=== PATIENT | female | born 1995 | race Caucasian/White ===

== ENCOUNTER 2023-01-25 20:55 | Outpatient (REF) | payer BC, SELFPAY ==
[2023-01-31 10:17] LABS: Age Gdln ACOG Testing Note (.); IGP, rfx Aptima HPV ASCU Note (.)
== END 2023-01-25 20:56 | disposition home or self-care (01) ==
LOC: LAB 20:55
PROVIDERS: Visit Provider Physician Assistant
DX: Z01.419 Encounter for gynecological examination (general) (routine) without abnormal findings (principal)
CPT/HCPCS: G0145

== ENCOUNTER 2024-07-17 20:02 | Outpatient (REF) | payer BC, SELFPAY ==
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
== END 2024-07-17 20:03 | disposition home or self-care (01) ==
LOC: LAB 20:02
PROVIDERS: Visit Provider Physician Assistant
DX: Z01.419 Encounter for gynecological examination (general) (routine) without abnormal findings (principal)
CPT/HCPCS: 88175

== ENCOUNTER 2024-11-19 11:39 | Outpatient (RCR) | payer BC, SELFPAY ==
--- OUTSIDE RECORDS SUMMARY | 2024-11-19 12:24 | XMS_ITS | Encounter Summary ---
Author Organization [facility] Address [address] [place] [address] Care Team Providers Care Head Packager Name Role Phone Basil Rincon MD Primary Care Provider [phone] Encounter Details Date Type Department Care Team (Late Contact Info) Description 11/18/2024 Telephone [facility] [address] [place] [address] [place] [address] Nae Haywood MA Social History Tobacco Use Types Packs/Day Years Used Date Smoking Tobacco: Unknown Alcohol Use Standard Drinks/Week Comments Never 0 (1 standard drink = 0.6 oz pur e alcohol) Caffeine intake: none Comments Unknown Sex and Gender Information Value Date Recorded Sex Assigned at Female 01/23/2023 10:02 AM EST Legal Sex Female 7:28 PM EDT Gender Identity Female 01/23/2023 10:02 AM EST Sexual Orientation Straight 01/23/2023 10 :02 AM EST documented as of this encounter Miscellaneous Notes * Telephone Encounter - Nae Haywood MA - 11/18/2024 1:09 PM EDT Pt called stating positive UPT 11/14/2024. Pt requesting hCG levels. Order faxed over to [facility]. PVU documented in this encounter Plan of Treatment Upcoming Encounters Date Type Department Care Team (Late st Contact Info) Description 12/27/2024 8:30 AM EST Ancillary Procedure [facility] [address] [place] [address] [place] [address] 12/27/2024 9:00 AM EST Initial [facility] [address] [address] 07/21/2025 9:00 AM EDT Office Visit [facility] [address] [address] Dorothy De La Rosa PA [address] [facility] [place] [place] [address] Scheduled Orders Name Type Priority Associated Diagnoses Orde r Schedule hCG, quantitative, Lab Routine Positive urine test ([facility]) 2 Occurrences starting 11/18/2024 until 11/18/2025 documented as of this encounter Visit Diagnoses Diagnosis Positive urine test ([facility]) documented in this encounter Care Teams Head Packager Relationship Specialty Start Date End Date Basil Rincon MD [address] [facility] [place] [address] PCP - General Family Medicine 01/25/23 documented as of this encounter
--- OUTSIDE RECORDS SUMMARY | 2024-11-19 12:24 | XMS_ITS | Encounter Summary ---
Author Organization [facility] Address [address] [place] [address] Care Team Providers Care Barrel Lathe Operator Inside Name Role Phone Basil Rincon MD Primary Care Provider [phone] Encounter Details Date Type Department Care Team (Late st Contact Info) Description 07/31/2024 [place] [phone] Nae Haywood MA Social History Tobacco Use [...] AM EST documented as of this encounter Plan of Treatment Upcoming Encounters Date Type Department Care Team (Late st Contact Info) Description 12/27/2024 8:30 AM EST [place] [phone] 12/27/2024 9:00 AM [place] [address] 07/21/2025 9:00 AM EDT Office Visit [facility] [address] [place] [phone] Dorothy De La Rosa PA [address] [place], [place] [id number] documented as of this encounter Procedures Procedure Name Priority Date/Time Associated Diagnosis Comments PAP SMEAR Routine 07/17/2024 12:00 AM EDT documented in this encounter Results * Pap Smear (07/17/2024 12:00 AM EDT) Swab Cervical swab / Unknown us Dorothy MACKAY LAB CYTOLOGY ORDERABLES Final Re sult EXTERNAL LAB documented in this encounter Visit Diagnoses Not on filedocumented in this encounter Care Teams Barrel Lathe Operator Inside Relationship Specialty Start Date End Date Basil Rincon MD [address] [facility] [place] [address] PCP - General Family Medicine 01/25/23 documented as of this encounter
--- OUTSIDE RECORDS SUMMARY | 2024-11-19 12:24 | XMS_ITS | Clinical Summary ---
Author Organization [facility] Address [address] [place] [address] Care Team Providers Care Dispatcher Bus And Trolley Name Role Phone Basil Rincon MD Primary Care Provider [phone] Allergies Active Allergy Reactions Criticality Noted Date Comments Amoxicillin 01/23/2023 Latex 01/23/2023 Penicillin G 01/23/2023 Medications Norgestimate-Eth Estradiol (Oxl-Lh-Ebctdx) 0.18/0.215/0.25 MG-25 MCG tabletIndications: Encounter for surveillance of contraceptive pills Take 1 tablet by mouth Daily TAKE 1 TABLET BY MOUTH EVERY DAY 30 tablet 5 Active norgestimate-ethin yl estradiol (Sprintec 28) 0.25-35 MG-MCG tabletIndications: control counseling Take 1 tablet by mouth Daily for 28 days Take 1 tablet by mouth daily 28 tablet 11 5 Active Encounters Date Type Department Care Team Description 11/18/2024 Telephone [facility] [address] [place] [address] [place] [address] Nae Haywood MA from Last 3 Months Family History Medical History Relation Name Comments Hypertension Father Mental illness Mother Relation Name Status Comments Father Alive Mother Alive Social History Tobacco Use Types Packs/Day Years Used Date Smoking Tobacco: Unknown Tobacco Cessation:Counseling Given: Not Answered Alcohol Use Standard Drinks/Week Comments Never 0 (1 standard drink = 0.6 oz pur e alcohol) Caffeine intake: none Comments Unknown Sex and Gender Information Value Date Recorded Sex Assigned at Female 01/23/2023 10:02 AM EST Legal Sex Female 7:28 PM EDT Gender Identity Female 01/23/2023 10:02 AM EST Sexual Orientation Straight 01/23/2023 10 :02 AM EST Last Filed Vital Signs Vital Sign Reading Time Taken Comments Blood Pressure 110/82 07/17/2024 12:58 PM EDT Pulse 92 04/30/2023 11:42 AM EDT Temperature 36.6 C (97.8 F) 04/30/2023 11:42 AM EDT Respiratory Rate - - Oxygen Saturation 98% 04/30/2023 11:42 AM EDT Inhaled Oxygen Concentration - - Weight 53.9 kg (118 lb 12 oz) 07/17/2024 12:58 P M EDT Height 157.5 cm (5' 2 ) 03/10/2022 12:00 PM EST Body Mass Index 21.72 03/10/2022 12:00 PM EST Plan of Treatment Upcoming Encounters Date Type Department Care Team (Late st Contact Info) Description 12/27/2024 8:30 AM EST Ancillary Procedure [facility] [address] [place] [address] [place] [phone] 12/27/2024 9:00 AM EST Initial [facility] [address] [place] [address] [place] [address] 07/21/2025 9:00 AM EDT Office Visit [facility] [address] [place] [address] [place] [address] Dorothy De La Rosa PA [address] [facility] [place] [address] Insurance BS Care Teams Dispatcher Bus And Trolley Relationship Specialty Start Date End Date Basil Rincon MD [address] [place] [address] PCP - General Family Medicine 01/25/23
== END 2024-11-20 11:30 | disposition home or self-care (01) ==
LOC: LAB 11:39
PROVIDERS: Visit Provider Obstetrics & Gynecology
DX: Z32.01 Encounter for pregnancy test, result positive (principal)
CPT/HCPCS: 36415; 84702

== ENCOUNTER 2024-11-21 11:31 | Outpatient (OUT) | payer BC, SELFPAY ==
--- OUTSIDE RECORDS SUMMARY | 2024-11-21 11:35 | XMS_ITS | Encounter Summary ---
Author Organization [facility] Address [address] [place] [address] Care Team Providers Care Restaurant Hourly Team Member Name Role Phone Basil Rincon MD Primary Care Provider [phone] Encounter Details Date Type Department Care Team (Late st Contact Info) Description 11/19/2024 Clinisync Result Encounter [facility] External Department Unsolicited Jung Crain DO [address] [place] [address] Social History Tobacco Use Types Packs/Day Years [...] AM EST Ancillary Procedure [facility] [address] [place] [phone] 12/27/2024 9:00 AM EST Initial [facility] B[facility] [address] [place] [phone] 07/21/2025 9:00 AM EDT Office Visit [facility] B[facility]GOS [address] [place] [address] Dorothy De La Rosa PA [address] [facility] [place] [address] documented as of this encounter Procedures Procedure Name Priority Date/Time Associated Diagnosis Comments [facility] PREG QUANT HCG Routine 11/19/2024 11 :55 AM EDT documented in this encounter Results * [facility] PREG QUANT HCG (11/19/2024 11:55 AM EDT) HCG QUANTITATIVE 417 mIU/mL [facility] Comment: 5-50 0.2-1 WEEK 50-500 1-2 WEEKS 100-5,000 2-3 WEEKS 500-10,000 3-4 WEEKS 1,000-50,000 4-5 WEEKS 10,000-100,000 5-6 WEEKS 15,000-200,000 6-8 WEEKS 10,000-100,000 2-3 MONTHS 11/19/2024 11:5 5 AM EDT 11/19/2024 12:01 PM EDT Narrative [facility] - 11/19/2024 12:37 PM EDT us Jung Breann DO [facility] Final [facility] documented in this encounter Visit Diagnoses Not on filedocumented in this encounter Care Teams Restaurant Hourly Team Member Relationship Specialty Start Date End Date Basil Rincon MD [address] [facility] [place] [phone] PCP - General Family Medicine 01/25/23 documented as of this encounter
--- OUTSIDE RECORDS SUMMARY | 2024-11-21 11:35 | XMS_ITS | Clinical Summary ---
Author Organization [facility] Address [address] [place] [address] Care Team Providers Care Patternmaker Sample Name Role Phone Basil Rincon MD Primary Care Provider [phone] Allergies Active Allergy Reactions Criticality Noted Date Comments Amoxicillin 01/23/2023 Latex 01/23/2023 Penicillin G 01/23/2023 Medications Norgestimate-Eth Estradiol (Gqx-Mz-Xklklx) 0.18/0.215/0.25 MG-25 MCG tabletIndications: Encounter for surveillance [...] Encounters Date Type Department Care Team Description 11/19/2024 Clinisync Result Encounter [facility] External Department Unsolicited Jung Crain DO 11/18/2024 Telephone [facility] [address] [place] [address] [place] [address] Nae Haywood MA from Last 3 [...] AM EST Ancillary Procedure [facility] [address] [place] [address] [place] [address] 12/27/2024 9:00 AM EST Initial N[facility] BURG[facility] [address] [place] [address] [place] [address] 07/21/2025 9:00 AM EDT Office Visit M[facility] [place] [address] Dorothy De La Rosa PA [address] [facility] [place] [address] Procedures Procedure Name Priority Date/Time Associated Diagnosis Comments [facility]H PREG QUANT HCG Routine 11/19/2024 11 :55 AM EDT from Last 3 Months Results * [facility] PREG QUANT HCG (11/19/2024 11:55 AM EDT) HCG QUANTITATIVE 417 mIU/mL [facility] Comment: 5-50 0.2-1 WEEK 50-500 1-2 WEEKS 100-5,000 2-3 WEEKS 500-10,000 3-4 WEEKS 1,000-50,000 4-5 WEEKS 10,000-100,000 5-6 WEEKS 15,000-200,000 6-8 WEEKS 10,000-100,000 2-3 MONTHS 11/19/2024 11:5 5 AM EDT 11/19/2024 12:01 PM EDT Narrative [facility] - 11/19/2024 12:37 PM EDT Jung Crain DO [facility] Final Result [facility] TB from Last 3 Months Insurance Care Teams Patternmaker Sample Relationship Specialty Start Date End Date Basil Rincon MD [address] [place] [address] PCP - General Family Medicine 01/25/23
--- OUTSIDE RECORDS SUMMARY | 2024-11-21 11:35 | XMS_ITS | Encounter Summary ---
Author Organization [facility] Address [address] [place] [address] Care Team Providers Care Field Training Manager Name Role Phone Basil Rincon MD Primary Care Provider [phone] Encounter Details Date Type Department Care Team (Late st Contact Info) Description 07/31/2024 [place] [phone] Nae Haywood MA Social History Tobacco Use [...] AM EST [place] [phone] 12/27/2024 9:00 AM [place] [address] 07/21/2025 9:00 AM EDT Office Visit [facility] [place] [facility] [address] [facility] [place] [phone] Dorothy De La Rosa PA [address] [facility] [address] [place], [place] [phone] documented as of this encounter Procedures Procedure Name Priority Date/Time Associated Diagnosis Comments PAP SMEAR Routine 07/17/2024 12:00 AM EDT documented in this encounter Results * Pap Smear (07/17/2024 12:00 AM EDT) Swab Cervical swab / Unknown us Dorothy MACKAY [facility] CYTOLOGY ORDERABLES Final Re sult EXTERNAL LAB documented in this encounter Visit Diagnoses Not on filedocumented in this encounter Care Teams Field Training Manager Relationship Specialty Start Date End Date Basil Rincon MD [address] [facility] [place] [address] PCP - General Family Medicine 01/25/23 documented as of this encounter
--- OUTSIDE RECORDS SUMMARY | 2024-11-21 11:35 | XMS_ITS | Encounter Summary ---
Author Organization [facility] Address [address] [place] [address] Care Team Providers Care Apprentice Stylist Name Role Phone Basil Rincon MD Primary Care Provider [phone] Encounter Details Date Type Department Care Team (Late Contact Info) Description 11/18/2024 Telephone [facility] [address] [place] [address] [place] [address] Nae Haywood MA Social History Tobacco Use [...] requesting hCG levels. Order faxed over to [facility]. [facility] documented in this encounter Plan of Treatment Upcoming Encounters Date Type Department Care Team (Late st Contact Info) Description 12/27/2024 8:30 AM EST Ancillary Procedure [facility] [address] [place] [address] [place] [address] 12/27/2024 9:00 AM EST Initial [facility] [address] [facility] [place] [address] 07/21/2025 9:00 AM EDT Office Visit [facility] [address] [facility] [place] [address] Dorothy De La Rosa PA [address] [facility] [place] [address] Scheduled Orders Name Type Priority Associated Diagnoses Orde r Schedule hCG, quantitative, Lab Routine Positive urine test ([facility]) 2 Occurrences starting 11/18/2024 until 11/18/2025 documented as of this encounter Visit Diagnoses Diagnosis Positive urine test ([facility]) documented in this encounter Care Teams Apprentice Stylist Relationship Specialty Start Date End Date Basil Rincon MD [address] [place] [address] PCP - General Family Medicine 01/25/23 documented as of this encounter
--- OUTSIDE RECORDS SUMMARY | 2024-11-21 18:31 | XMS_ITS | CCD ---
Author Organization [facility] Care Team Providers Care Mobile Health Vehicle Operator Name Role Phone DR CHRISTY POLANCO Admitting Unavailable DR CHRISTY POLANCO Attending Unavailable DR BERNARDINO CHRISTINE Primary Care Unavailable DR CHRISTY POLANCO Consulting Unavailable MD Bernardino Christine Primary Care Provider [phone] RASHEL Perez Emergency Provider Bernardino Christine Primary Care Unavailable Mg Perez Attending Unavailable Mg Perez Admitting Unavailable Bernardino Christine MD Primary Care Provider [phone] DOROTHY WELLS Attending Unavailable Allergies Allergy Classification Reported Allergen(s) Allergy Type Date of Onset Reaction(s) Facility (6 sources) Amoxicillin; Translations: [amoxicillin] Drug Allergy 06-27-2022 [facility] (6 sources) Latex; Translations: [latex] Allergy to substance 06-27-2022 [facility] (2 sources) Penicillins; Translations: [Penicillins] Allergy to substance 06-27-2022 [facility] (4 sources) Penicillin G Drug Allergy 01-23-2023 [facility] Medications Current Medications Medication Drug Class(es) Dates Sig (Normalized) Sig (Original) ethinyl estradiol 0.035 mg / norgestimate 0.25 mg oral tablet (6 sources) Progestin, Estrogen Start: 07-17-2024 End: 08-14-2024 [...] tablet by mouth once daily Norgestimate-Eth Estradiol (Ohk-Yl-Jnfovz) 0.18/0.215/0.25 MG-25 MCG tablet Indications: Encounter for surveillance of contraceptive pills Take 1 tablet by mouth Daily TAKE 1 TABLET BY MOUTH EVERY DAY 30 tablet 05/30/2024 Active Norgestimate-Ethinyl Estradiol (Kaq-Di-Mxvevg) 0.18/0.215/0.25 mg-25 mcg tablet (1 source) Start: 06-27-2022 take 1 tablet by mouth once daily Norgestimate-Ethinyl Estradiol (Slt-Oq-Psxxla) 0.18/0.215/0.25 mg-25 mcg tablet Active 1 TAB [...] Test Name Value Interpretation Reference Range Facility IGP,APTIMA HPV,AGE GDLNon AGE GDLN ACOG TESTING Note . [facility] Comment on above: TESTS RESULT FLAG UN ITS REF RANGE LAB Clinician Provided Cytology Information Source.............Cervix;Endocervix No. of containers..01 ThinPrep Vial Age Algo ACOG Carina... 21-29 01 FLAG LEGEND: L-Low Normal,H-High Normal,LL-Alert Low,HH-Alert High <-Panic Low,>-Panic High,A-Abnormal,AA-Critical Abnormal Performed at: 01 =G [facility] [address] Ashley Leslie MD, IGP, RFX APTIMA HPV ASCU Note . [facility] Comment on above: TESTS RESULT FLAG UN ITS REF RANGE LAB DIAGNOSIS: 02 NEGATIVE FOR INTRAEPITHELIAL LESION OR MALIGNANCY. Specimen adequacy: 02 Satisfactory for evaluation. Endocervical and/or squamous metaplastic cells (endocervical component) are present. Performed by: Jessica Nicolas, Mail Machine Operator ([facility]) . 02 Note: Note 02 The Pap smear is a screening test designed to aid in the detection of premalignant and malignant conditions of the uterine cervix. It is not a diagnostic procedure and should not be used as the sole means of detecting cervical cancer. Both false-positive and false-negative reports do occur. Test Methodology: Note 02 This liquid based ThinPrep(R) pap test was screened with the use of an image guided system. . 02 The HPV DNA reflex criteria were not met with this specimen result therefore, no HPV testing was performed. FLAG LEGEND: L-Low Normal,H-High Normal,LL-Alert Low,HH-Alert High <-Panic Low,>-Panic High,A-Abnormal,AA-Critical Abnormal Performed at: [address] [address] Ashley Leslie MD, Performed at: = - [facility] [id number] Extrusion Die Corrector: Ashley Leslie MD, Phone: [phone] Performed at: [facility] [address] [id number] Extrusion Die Corrector: Ashley Leslie MD, Phone: [phone] BRUSH-SPATULA CERVIX ENDOCERVIX [facility] HCG ( test) Ql (U)o n 07-17-2024 Interpretation and review of laboratory results Normal [facility] Preg Test, Ur Negative Negative [facility] XR humerus RT*on 06-27-2022 XR humerus RT* [facility] [place] [address] XRay Report Signed Patient: Maria Elena Valverde MR#: [id number] [birth year] : 1995 Acct:[id number] Age/Sex: 26 / F ADM Date: 06/27/22 Loc: ER Room: Type: [facility] ER Attending Dr: Copies to: Mg Perez [...] Lynette Sherman M.D.06/27/2022 8:33 PM Dictation Location: [place] [address] Transcribed By: [facility] 06/27/222032 Dictated By: Lynette Sherman MD 06/27/222031 Signed By: 06/27/222032 [facility] PAP ACOG PANEL 2: 21 to 29on 02-01-2022 . . Normal [facility] Comment on above: Performed By: #### [id number] #### [facility] [address] [place] [address] Dr. Rajwinder Seaman Age Gdln ACOG Testing - [facility] Comment on above: Performed By: #### 4 [id number] #### [facility] [address] [place] [address] Dr. Rajwinder Seaman DIAGNOSIS: Comment [facility] Comment on above: Result Comment: NEGA TIVE FOR INTRAEPITHELIAL LESION OR MALIGNANCY. Performed By: #### 4 [id number] #### [facility] [address] [place] [address] Dr. Rajwinder Seaman Methodology: Comment [facility] Comment on above: Result Comment: This liquid based ThinPrep(R) pap test was screened with the use of an image guided system. Performed By: #### 4 [id number] #### [facility] [address] [place] [address] Dr. Rajwinder Seaman Note: Comment [facility] Comment on above: Result Comment: The Pap smear is a screening test designed to aid in the detection of premalignant and malignant conditions of the uterine cervix. It is not a diagnostic procedure and should not be used as the sole means of detecting cervical cancer. Both false-positive and false-negative reports do occur. . Performed By: #### 4 [id number] #### [facility] [address] [place] [address] Dr. Rajwinedr Seaman Performed by: Comment [facility] Comment on above: Result Comment: Nehal Larsen Physical Science Aide Performed By: #### 4 [id number] #### [facility] [address] [place], [place] [address] Dr. Rajwinder Seaman Reflex Criteria: Comment Normal [facility] Comment on above: Result Comment: The HPV DNA reflex criteria were not met with this specimen result therefore, no HPV testing was performed. . Performed By: #### 4 [id number] #### [facility] [address] [place], [place] [address] Dr. Rajwinder Seaman Specimen adequacy: Comment Normal [facility] Comment on above: Result Comment: Sati sfactory for evaluation. Endocervical and/or squamous metaplastic cells (endocervical component) are present. Performed By: #### 4 [id number] #### [facility] [address] [place] [address] [address] Rajwinder Seaman Vital Signs Date Time Vital Sign Value Performing Clinician Facility 07-17-2024 12:58-0400 Body mass index (BMI) [Ratio] 21.72 kg/m2 Dorothy MACKAY Work Phone: [facility] 07-17-2024 12:58-0400 Body weight 53.87 kg Dorothy MACKAY Work Phone: [facility] 07-17-2024 12:58-0400 Diastolic blood pressure 82 mm[Hg] Dorothy MACKAY Work Phone: [facility] 07-17-2024 12:58-0400 Systolic blood pressure 110 mm[Hg] Dorothy MACKAY Work Phone: [facility] 06-27-2022 19:18-0400 Body height 157.48 cm MD Bernardino Christine Work Phone: [facility] 06-27-2022 19:18-0400 Body temperature 98.8 [degF] MD Bernardino Christine Work Phone: [facility] 06-27-2022 19:18-0400 Body weight 49.4 kg MD Bernardino Christine Work Phone: [facility] 06-27-2022 19:18-0400 Diastolic blood pressure 70 mm[Hg] MD Bernardino Christine Work Phone: [facility] 06-27-2022 19:18-0400 Heart rate 94 /min MD Bernardino Christine Work Phone: [facility] 06-27-2022 19:18-0400 Respiratory rate 17 /min MD Bernardino Christine Work Phone: [facility] 06-27-2022 19:18-0400 SaO2% (BldA) [Mass fraction] 97 % MD Bernardino Christine Work Phone: [facility] 06-27-2022 19:18-0400 Systolic blood pressure 130 mm[Hg] MD Bernardino Christine Work Phone: [facility] Encounters Encounter Date Encounter Type Care Provider Facility Start: 07-17-2024 End: 07-17-2024 Bamboo flowsheet Dorothy MACKAY Work Phone: [facility] Start: 07-17-2024 End: 07-21-2024 Bamboo flowsheet Dorothy MACKAY Work Phone: [facility] Start: 07-17-2024 End: 07-21-2024 Clinisync Result Encounter Dorothy MACKAY Work Phone: [facility] Unsolicited Start: 07-17-2024 End: 07-17-2024 Patient encounter procedure Dorothy MACKAY Work Phone: [facility] Start: 07-17-2024 End: 07-17-2024 Periodic preventive med est patient 18-39 yrs Dorothy MACKAY Work Phone: [facility] Comment on above: Well woman exam with routine gynecological exam; control counseling Start: 07-17-2024 End: 07-17-2024 ambulatory DOROTHY WELLS Not Available Start: 06-27-2022 End: 06-27-2022 Emergency department patient visit Bernardino Christine Facility:[facility] Start: 06-27-2022 End: 06-27-2022 Emergency department patient visit MD Bernardino Christine Work Phone: [facility] Work Phone: Start: 01-24-2022 End: 01-24-[address] CHRISTY POLANCO Facility:H1 Procedures Date Procedure Procedure Detail Performing Clinician Start: 07-17-2024 IGP,APTIMA HPV,AGE GDLN Dorothy MACKAY Work Phone: Start: 07-17-2024 Urine test visual color cmprsn meths Dorothy MACKAY Work Phone: Start: 06-27-2022 Plain X-ray of right humerus MD Bernardino Christine Work Phone: Plan of Treatment Date Care Activity Detail Author Start: 07-21-2025 End: 07-21-2025 Patient encounter procedure 07/21/2025 9:00 AM EDT Office Visit [facility] [address] [facility] [address] Dorothy Wells PA [address] [facility] [address] [place], [place] [id number] [facility] Start: 07-17-2024 End: 07-17-2024 Patient encounter procedure 07/17/2024 1:00 PM EDT Office Visit [facility] [address] [facility] [address] Dorothy Wells PA [address] [facility] [address] [place], [place] [id number] Arrived [facility] Comment on above: Arrived Cytology Cervical or vaginal smear or scraping study Pap Smear Pathology and Cytology Routine Well woman exam with routine gynecological exam Ordered: 07/17/2024 [facility] Work Phone: Comment on above: Ordered: 07/17/2024 Patient Education Minor Contusion ED [facility] Work Phone: Patient referral [facility] Work Phone: Payers Date Payer Category Payer Blue [employer] Blue Shield [id number] 2024 Unknown [id number] 2022 Self-pay [id number] 1995 Unknown [id number] 1995 Unknown [id number] 1957 Unknown [id number] Unknown Regular Auto/Medical [id number] Unknown [id number] Social History Date Type Detail Facility Tobacco smoking stat [facility] Unknown if ever smoked [facility] Work Phone: Start: 1995 Sex Assigned At Female [facility] Start: 04-30-2023 Tobacco smoking status OHIS Tobacco smoking consumption unknown [facility] Start: 04-30-2023 End: 07-17-2024 Alcoholic beverage intake Lifetime non-drinker (finding) [facility] Start: 01-25-2023 History of Social function [facility] Start: 01-25-2023 Tobacco use panel [facility] Start: 01-24-2023 Alcohol Comment Caffeine intake: none [facility] Start: 01-23-2023 Gender identity Identifies as female gender (finding) [facility] Start: 01-23-2023 Sexual orientation Heterosexual (finding) [facility] History of Present illness Narrative 07-17-2024 THOMPSON Garcia - 07/17/2024 1:00 PM EDT Note Date & Type Note Facility 07-17-2024 History of Presen t illness Narrative Reason for Appointment: Patient ID: Maria Elena Valverde is a 28 y.o. female who presents for Well Women Visit Patient presents today for Annual Exam. MEDICATIONS Current Outpatient Medications Medication Instructions Norgestimate-Eth Estradiol (Tdy-Mb-Uaiddd) 0.18/0.215/0.25 MG-25 MCG tablet 1 tablet, Oral, [...] nursing note reviewed. Exam conducted with a behavioral health specialist present. Vitals: Estimated body mass index is [...] Facility Evaluation note No assessment information availa [facility] Work Phone: Evaluation note Note Date & [...] and content) DATE CREATED AUTHOR 02/02/2022 [facility] DATE CREATED AUTHOR AUTHOR'S ORGANIZ ATION 07/01/2022 [facility] DATE CREATED AUTHOR AUTHOR'S ORGANIZ ATION 07/20/2024 [facility] dical Specialists [facility] Care Teams (unrecognized sec tion and content) Team Status: Active Member Role Status Dates Bernardino Christine MD Primary Care Provider Active Team Status: Inactive Member Role Status Dates Bernardino Christine MD Primary Care Provider Active BRITT GanC Emergency Provider Active Mobile Health Vehicle Operator Relationship Specialty Start Date End Date Bernardino Christine MD [address] [place] [address] PCP - General Family Medicine 01/25/23 Mobile Health Vehicle Operator Relationship Specialty Start Date End Date Bernardino Christine MD [address] [place] [address] [phone] PCP - General Family Medicine 01/25/23 Goals [...] BE BASED ON THE PRIMARY CLINICAL RECORDS. [employer] [facility]. provides no warranty or guarantee of the accuracy or completeness of information in this document.
== END 2024-11-21 11:32 | disposition home or self-care (01) ==
PROVIDERS: Visit Provider Obstetrics & Gynecology
DX: Z32.01 Encounter for pregnancy test, result positive (principal)
CPT/HCPCS: 36415; 84702

== ENCOUNTER 2024-12-27 09:58 | Outpatient (OUT) | payer BC, SELFPAY ==
--- OUTSIDE RECORDS SUMMARY | 2024-12-27 08:30 | XMS_ITS | Encounter Summary ---
Author Organization [facility] Address [address] [place] [address] Care Team Providers Care Senior Director Of [employer] Name Role Phone Basil Rincon MD Primary Care Provider [phone] Encounter Details DateTypeDepartmentCare Team (Latest Contact Info)Dugscnxkjvz19/07/2025 8:30 AM ESTAncillary Procedure [facility] Bruce BURGOS [address] [place] [address] Missed menses; Positive urine test ([facility]) Social History Tobacco UseTypesPacks/DayYears UsedDateSmoking Tobacco: UnknownAlcohol Use Standard Drinks/WeekCommentsNever0 (1 standard drink = 0.6 oz pure alcohol) Caffeine intake: noneEstimated Date of VsqgwmurHphvwaxkZcu22/09/2026 Based on last menstrual period of 2024Sex and Gender InformationValueDate RecordedSex Assigned at XxxowTskbvu10/04/2023 10:02 AM ESTLegal SexFemale 05/04/2022 7:28 PM EDTGender QlmjwsydBlfkqb49/04/2023 10:02 AM ESTSexual MskhuidusajLjqkqxci06/04/2023 10:02 AM ESTdocumented as of this encounter Plan of Treatment DateTypeDepartmentCare Team (Latest Contact Info)Gzapwfllqrd46/04/2025 9:20 AM ESTRoutine [facility] Bruce BURGOS [address] [place] [address] Jung Crain DO [address] [facility] [place] [address] 07/21/2025 9:00 AM EDTOffice Visit [facility] Bruce WRIGHTGYN [address] [facility] [place] [phone] Dorothy De La Rosa PA [address] [facility] [place] [address] NameTypePriorityAssociated DiagnosesDate/TimeUS OB transvaginalImagingRoutine Missed menses Positive urine test ([facility]) 12/27/2024 10:01 AM ESTdocumented as of this encounter Visit Diagnoses Diagnosis Missed menses Positive urine test ([facility]) documented in this encounter Care Teams Team MemberRelationshipSpecialtyStart DateEnd Date Basil Rincon MD [address] [facility] [place] [address] PCP - GeneralFamily Jvzzgpyw78/6/23documented as of this encounter
--- OUTSIDE RECORDS SUMMARY | 2024-12-27 09:00 | XMS_ITS | Encounter Summary ---
Author Organization [facility] Address [address] [place] [address] Care Team Providers Care Wood Boat Builder Supervisor Name Role Phone Basil Rincon MD Primary Care Provider [phone] Reason for Visit * ReasonCommentsAmenorrhea Encounter Details DateTypeDepartmentCare Team (Latest Contact Info)Yuefrzxspqr68/07/2025 9:00 AM ESTInitial [facility] Bruce OBGYRandy [address] [place] [address] [place] [address] GA: 9w3d Social History Tobacco UseTypesPacks/DayYears UsedDateSmoking Tobacco: UnknownAlcohol Use Standard Drinks/WeekCommentsNever0 (1 standard drink = 0.6 oz pure alcohol) Caffeine intake: noneEstimated Date of NibwggmlPyfzagjyPqj62/09/2026 Based on last menstrual period of 2024Sex and Gender InformationValueDate RecordedSex Assigned at FxaznVwxcxy56/04/2023 10:02 AM ESTLegal SexFemale 05/04/2022 7:28 PM EDTGender LsnbkvqmNmimcg38/04/2023 10:02 AM ESTSexual BpelbozhnnqPrgokhwb59/04/2023 10:02 AM ESTdocumented as of this encounter Last Filed Vital Signs Vital SignReadingTime TakenCommentsBlood Lcwetbpc873/7812/27/2024 8:57 AM EST Pulse--Temperature--Respiratory Rate--Oxygen Saturation--Inhaled Oxygen Concentration--Uheghd16 kg (119 lb)12/27/2024 8:57 AM ESTHeight--Body Mass Index 21.7701/ 12:00 PM ESTdocumented in this encounter Progress Notes * Monisha YeeAMINATA - 12/27/2024 9:00 AM EST Reason for Appointment: Patient ID: Maria Elena Valverde is a 29 y.o. female who presents for Amenorrhea Patient presents today for a Nurse OB Intake appointment. Patient is 9w3d with a Estimated Date of Delivery: 07/29/25 OB History Para Term AB Living 1 SAB IAB Ectopic Multiple Live Births # Outcome Date GA Lbr Enoc/2nd Weight Sex Type Anes PTL Lv 1 Current Current Medications: currently has no medications in their medication list. Medical History: Active Ambulatory Problems Diagnosis Date Noted No Active Ambulatory Problems Resolved Ambulatory Problems Diagnosis Date Noted No Resolved Ambulatory Problems Past Medical History: Diagnosis Date Eczema Learning disability Family History Problem Relation Name Age of Onset Mental illness Mother Hypertension Father Social History Tobacco Use Smoking status: Unknown Smokeless tobacco: Not on file Substance Use Topics Alcohol use: Never Comment: Caffeine intake: none Drug use: Not on file History reviewed. No pertinent surgical history. Allergies Allergen Reactions Amoxicillin Latex Other Reaction(s): Rash Penicillin G Penicillins Other Reaction(s): Hives Vitals: Estimated body mass index is 21.77 kg/m?? as calculated from the following: Height as of 03/10/22: 5' 2 . Weight as of this encounter: 119 lb. BP: 118/78 Patient's last menstrual period was 2024. Assessment/Plan Diagnoses and all orders for this visit: Missed menses - US OB transvaginal; Future - Type and screen; Future - ABO/Rh; Future - CBC and differential - Hemoglobin A1c - RPR - Rubella antibody, IgG - Hepatitis B surface antigen - Hepatitis C antibody - HIV-1 and HIV-2 antibodies - Urine culture - POCT , urine manually resulted - POCT urinalysis dipstick manually resulted Positive urine test ([facility]) - US OB transvaginal; Future , unspecified gestational age ([facility]) - Type and screen; Future - ABO/Rh; Future - CBC and differential - Hemoglobin A1c - RPR - Rubella antibody, IgG - Hepatitis B surface antigen - Hepatitis C antibody - HIV-1 and HIV-2 antibodies - Rapid drug screen, urine; Future Encounter for supervision of normal first in first trimester ([facility]) - Rapid drug screen, urine; Future 9 weeks gestation of ([facility]) Nurse Note: Pt is unsure of the [place] billion to one. Advised pt if she decides to have [place] to make sure labs are done along with it. PVU. 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 Her partner gets shingles yearly. Pt was advised not to be around her partner when he has anoutbreak due to being contagious. Both parties VU. Follow Up: Patient is to have labs drawn at directed and return to office for initial OB appointment with provider. Patient may call office as needed with any concerns or questions. Nurse Visit Completed by: Monisha Yee MA documented in this encounter Plan of Treatment DateTypeDepartmentCare Team (Latest Contact Info)Ofcnozjonul95/04/2025 9:20 AM ESTRoutine [facility] Bruce BURGOS [address] [facility] [place] [phone] Jung Crain DO [address] [facility] [place] [address] 07/21/2025 9:00 AM EDTOffice Visit NOMToma BURGOS [address] [facility] [place] [address] Dorothy De La Rosa PA [address] [facility] [place] [address] NameTypePriorityAssociated DiagnosesDate/TimeUS OB transvaginalImagingRoutine Missed menses Positive urine test ([facility]) 12/27/2024 10:01 AM ESTNameTypePriorityAssociated DiagnosesOrder ScheduleUS OB transvaginalImagingRoutine Missed menses Positive urine test ([facility]) Expected: 12/17/2024, Expires: 03/19/2025Type and screenLabRoutine Missed menses , unspecified gestational age ([facility]) Expected: 12/27/2024 (Approximate), Expires: 12/27/2025BO/RhLabRoutine Missed menses , unspecified gestational age ([facility]) Expected: 12/27/2024 (Approximate), Expires: 12/27/2025BC and differentialLab Routine Missed menses , unspecified gestational age ([facility]) Ordered: 12/27/2024Hemoglobin F7sBhuKhjxcbx Missed menses , unspecified gestational age ([facility]) Ordered: 12/27/2024RPRLabRoutine Missed menses , unspecified gestational age ([facility]) Ordered: 12/27/2024Rubella antibody, IgGLabRoutine Missed menses , unspecified gestational age ([facility]) Ordered: 12/27/2024Hepatitis B surface antigenLabRoutine Missed menses , unspecified gestational age ([facility]) Ordered: 12/27/2024Hepatitis C antibodyLabRoutine Missed menses , unspecified gestational age ([facility]) Ordered: 12/27/2024HIV-1 and HIV-2 antibodiesLabRoutine Missed menses , unspecified gestational age ([facility]) Ordered: 12/27/2024Urine cultureMicrobiologyRoutine Missed menses Ordered: 12/27/2024Rapid drug screen, urineLabRoutine , unspecified gestational age ([facility]) Encounter for supervision of normal first in first trimester ([facility]) Expected: 12/27/2024 (Approximate), Expires: 12/27/2025documented as of this encounter Procedures Procedure NamePriorityDate/TimeAssociated DiagnosisCommentsPOCT , URINE Vrgjnhu9312/27/2024 8:50 AM EST Missed menses POCT URINALYSIS NOWOWSSVTxfnvpu41/07/2025 8:50 AM EST Missed menses documented in this encounter Results * (ABNORMAL) POCT urinalysis dipstick manually resulted (12/27/2024 8:50 AM EST) ComponentValueRef RangeTest MethodAnalysis TimePerformed AtPathologist SignatureColor, UAYellowClarity, UAClearGlucose, UANegativeNegative - 2000(110) ++++ mg/dLBilirubin, UANegativeNegative - 4(70) +++ mg/dLKetones, UA NegativeNegative - 160(16) ++++ mg/dLSpec Grav, UA1.0301 - 1.03Blood, UA PositiveNegative - 50 Zak/mcLpH, UA5.55 - 9Protein, UANegativeNegative - 2000(20) ++++ mg/dLUrobilinogen, UA1.00.2 - 12 mg/dLLeukocytes, UANegative Negative - 500+++ Cherelle/mcLNitrite, UANegativeNegative - PositiveSpecimen (Source)Anatomical Location / LateralityCollection Method / VolumeCollection TimeReceived WwirYyucg94/07/2025 8:50 AM EST Narrative Authorizing ProviderResult TypeResult StatusCorey Breann DOPOINT OF CARE TEST ENTER/EDIT ORDERABLESFinal Result * (ABNORMAL) POCT , urine manually resulted (12/27/2024 8:50 AM EST) ComponentValueRef RangeTest MethodAnalysis TimePerformed AtPathologist SignaturePreg Test, UrPositiveNegativeSpecimen (Source)Anatomical Location / LateralityCollection Method / VolumeCollection TimeReceived TimeUrine 12/27/2024 8:50 AM EST Narrative Authorizing ProviderResult TypeResult StatusCorey Breann DOPOINT OF CARE TEST ENTER/EDIT ORDERABLESFinal Result documented in this encounter Visit Diagnoses Diagnosis Missed menses Positive urine test ([facility]) , unspecified gestational age ([facility]) Encounter for supervision of normal first in first trimester ([facility]) 9 weeks gestation of ([facility]) documented in this encounter Care Teams Team MemberRelationshipSpecialtyStart DateEnd Date Basil Rincon MD [address] [place] [address] PCP - GeneralFamily Oogvpoks97/6/23documented as of this encounter
--- OUTSIDE RECORDS SUMMARY | 2024-12-27 10:02 | XMS_ITS | Encounter Summary ---
Author Organization [facility] Address [address] [place] [address] Care Team Providers Care Professor Of Business Name Role Phone Basil Rincon MD Primary Care Provider [phone] Encounter Details DateTypeDepartmentCare Team (Latest Contact Info)Jbmjbjbwgsd80/07/2025bstract MARS BURGOS [address] [place] [phone] Jung Crain DO [facility] Dhruv [place], [facility] Social History Tobacco UseTypesPacks/DayYears UsedDateSmoking Tobacco: UnknownAlcohol Use Standard Drinks/WeekCommentsNever0 (1 standard drink = 0.6 oz pure alcohol) Caffeine intake: noneEstimated Date of AfabgiukQupuqfcsVba07/09/2026 Based on last menstrual period of 2024Sex and Gender InformationValueDate RecordedSex Assigned at PstesPglfys05/04/2023 10:02 AM ESTLegal SexFemale 05/04/2022 7:28 PM EDTGender YaipaacjVwnpea61/04/2023 10:02 AM ESTSexual UghwqjhvhqlYtojgxhx04/04/2023 10:02 AM ESTdocumented as of this encounter Plan of Treatment DateTypeDepartmentCare Team (Latest Contact Info)Gkbymiraurm58/04/2025 9:20 AM ESTRoutine MARS BURGOS [address] [place] [phone] Jung Crain DO [address] [facility] [address] [place], [place] [address] 07/21/2025 9:00 AM EDTOffice Visit [facility] Bruce BURGOS [address] [facility] [place] [address] Dorothy De La Rosa PA [address] [facility] [address] [place], [place] [phone] documented as of this encounter Visit Diagnoses Not on filedocumented in this encounter Care Teams Team MemberRelationshipSpecialtyStart DateEnd Basil Rincon MD [address] [facility] [place] [address] PCP - GeneralFamily Pbrigebi76/6/23documented as of this encounter
--- OUTSIDE RECORDS SUMMARY | 2024-12-27 10:02 | XMS_ITS | Clinical Summary ---
Author Organization [facility] Address [address] [place] [address] Care Team Providers Care Emulsion Operator Name Role Phone Basil Rincon MD Primary Care Provider [phone] Allergies Active AllergyReactionsCriticalityNoted UhnxJsfpufpqSzpbvlpunht33/04/2023Latex 06/27/2022 Other Reaction(s): Rash Penicillin 0254Rirsckphggz59/08/2023 Other Reaction(s): Hives Medications MedicationSigDispense QuantityRefillsLast FilledStart DateEnd DateStatus Norgestimate-Eth Estradiol (Zxq-Ac-Cvgpzk) 0.18/0.215/0.25 MG-25 MCG tablet Indications:Encounter for surveillance of contraceptive pillsTake 1 tablet by mouth Daily TAKE 1 TABLET BY MOUTH EVERY DAY 30 tablet Discontinued(Therapy completed) norgestimate-ethinyl estradiol (Sprintec 28) 0.25-35 MG-MCG tablet Indications: control counselingTake 1 tablet by mouth Daily for 28 days Take 1 tablet by mouth daily 28 tablet 110Discontinued(Therapy completed) Encounters DateTypeDepartmentCare YzoeEldwgegwlzh62/07/2025 9:00 AM ESTInitial MARS [place] OBLUÍS [address] [place] [address] [place] [address] [place]: 9w3d12/27/2024 8:30 AM ESTAncillary Procedure [facility] Bruce OBGYN [address] [facility] [place] [address] Missed menses; Positive urine test ([facility])12/27/2024bstract [facility] Bruce OBGYN [address] [facility] [place] [address] BreannJung soriano, DO 12/26/20248181Lkctmi45/31/3882Ezkqez39/02/2025Clinisync Result Encounter NOMS External Department Unsolicited Jung Crain, DO 11/19/2024linisync Result Encounter NOMS External Department Unsolicited Jung Crain, DO 11/18/2024Telephone [facility] Bruce OBLUÍS [address] [facility] [place] [phone] Nae Haywood MA from Last 3 Months Family History Medical HistoryRelationNameCommentsHypertensionFatherMental illnessMother RelationNameStatusCommentsFatherAliveMotherAlive Social History Tobacco UseTypesPacks/DayYears UsedDateSmoking Tobacco: Unknown Tobacco Cessation:Counseling Given: Not Answered Alcohol UseStandard Drinks/WeekCommentsNever0 (1 standard drink = 0.6 oz pure alcohol)Caffeine intake: noneEstimated Date of DeliveryCommentsYes 07/29/2025ased on last menstrual period of 2024Sex and Gender Information ValueDate RecordedSex Assigned at QkvzbChxbau33/04/2023 10:02 AM ESTLegal Sex Qjpfpl3805/04/2022 7:28 PM EDTGender BgavcmtbKztxkc42/04/2023 10:02 AM ESTSexual WtfxgxtkykcVrwojigw51/04/2023 10:02 AM EST Last Filed Vital Signs Vital SignReadingTime TakenCommentsBlood Cxojfrlb065/7811 8:57 AM EST Deldq285704/30/2023 11:42 AM XIQXkpiklvaqqz85.6 ??C (97.8 ??F)04/30/2023 11:42 AM EDTRespiratory Rate--Oxygen Fwqhtartxk32%04/30/2023 11:42 AM EDTInhaled Oxygen Concentration--Vcwiwz22 kg (119 lb)12/27/2024 8:57 AM KMLJbdfoe721.5 cm (5' 2 ) 03/10/2022 12:00 PM ESTBody Mass Index21.77003/10/2022 12:00 PM EST Plan of Treatment DateTypeDepartmentCare Team (Latest Contact Info)Myoonesfgqz13/04/2025 9:20 AM ESTRoutine NOMToma BURGOS [address] [facility] [place] [phone] Jung Crain DO [address] [facility] [address] [place], [place] [phone] 07/21/2025 9:00 AM EDTOffice Visit MARS BURGOS [address] [facility] [place] [address] Dorothy De La Rosa PA [address] [facility] [place] [address] Procedures Procedure NamePriorityDate/TimeAssociated DiagnosisCommentsPOCT URINALYSIS HEENGWJVOchpfvt57/07/2025 8:50 AM EST Missed menses POCT , UAXDLJbbyxjj96/07/2025 8:50 AM EST Missed menses [facility] PREG QUANT LGUTxddeey58/02/2025 11:36 AM EDT [facility] PREG QUANT QKAKdrmjht24/30/2025 11:55 AM EDT from Last 3 Months Results * (ABNORMAL) POCT , urine manually resulted (12/27/2024 8:50 AM EST) ComponentValueRef RangeTest MethodAnalysis TimePerformed AtPathologist SignaturePreg Test, UrPositiveNegativeSpecimen (Source)Anatomical Location / LateralityCollection Method / VolumeCollection TimeReceived TimeUrine 12/27/2024 8:50 AM EST Narrative Authorizing ProviderResult TypeResult StatusCorey Breann DOPOINT OF CARE TEST ENTER/EDIT ORDERABLESFinal Result * (ABNORMAL) POCT urinalysis dipstick manually resulted [...] Location / LateralityCollection Method / VolumeCollection TimeReceived ZdgzIxybk18/07/2025 8:50 AM EST Narrative Authorizing ProviderResult TypeResult StatusCorey Breann DOPOINT OF CARE TEST ENTER/EDIT ORDERABLESFinal Result * [facility] PREG QUANT HCG (11/21/2024 11:36 AM EDT) Only the most recent of2 resultswithin the time period is included. ComponentValueRef RangeTest MethodAnalysis TimePerformed AtPathologist Signature HCG QUANTITATIVE1,199mIU/mLTBHComment: 5-50 ? 0.2-1 WEEK 50-500 ? 1-2 WEEKS 100-5,000 ?2-3 WEEKS 500-10,000 ? 3-4 WEEKS 1,000-50,000 ?? 4-5 WEEKS 10,000-100,000 5-6 WEEKS 15,000-200,000 6-8 WEEKS 10,000-100,000 2-3 MONTHS Specimen (Source)Anatomical Location / LateralityCollection Method / Volume Collection TimeReceived Time11/21/2024 11:36 AM EDT1 11:39 AM EDT Narrative [facility] - 11/21/2024 1:22 PM EDT Authorizing ProviderResult TypeResult StatusCorey Breann DOCLINISYNCFinal Result Performing OrganizationAddressCity/State/ZIP CodePhone Number CLINISYNC [facility] from Last 3 Months Insurance Care Teams Team MemberRelationshipSpecialtyStart DateEnd Date Basil Rincon MD [address] [place] [address] PCP - GeneralFamily Cavlbqwy80/6/23
--- OUTSIDE RECORDS SUMMARY | 2024-12-27 10:02 | XMS_ITS | Encounter Summary ---
Author Organization [facility] Address [address] [place] [address] Care Team Providers Care Supervisor In Circuit Testing Name Role Phone Basil Rincon MD Primary Care Provider [phone] Encounter Details DateTypeDepartmentCare Team (Latest Contact Info)Ztedixaqstq54/06/2025Travel Social History Tobacco UseTypesPacks/DayYears UsedDateSmoking Tobacco: UnknownAlcohol Use Standard Drinks/WeekCommentsNever0 (1 standard drink = 0.6 oz pure alcohol) Caffeine intake: noneEstimated Date of VbtazsuqVizzrazrElc67/09/2026 Based on last menstrual period of 2024Sex and Gender InformationValueDate RecordedSex Assigned at JwrgaZelxkm97/04/2023 10:02 AM ESTLegal SexFemale 05/04/2022 7:28 PM EDTGender QavsdzcdDkerwv40/04/2023 10:02 AM ESTSexual QxtnlqpdffhPwrlrorl37/04/2023 10:02 AM ESTdocumented as of this encounter Plan of Treatment DateTypeDepartmentCare Team (Latest Contact Info)Ilarlqemrwc08/04/2025 9:20 AM ESTRoutine [facility] Bruce OBGYN [address] [facility] [place] [address] Jung Crain DO [address] [facility] [place] [address] 07/21/2025 9:00 AM EDTOffice Visit [facility] Bruce BURGOS [address] [facility] [place] [address] Dorothy De La Rosa PA [address] [facility] [place] [address] documented as of this encounter Visit Diagnoses Not on filedocumented in this encounter Care Teams Team MemberRelationshipSpecialtyStart DateEnd Date Basil Rincon MD [address] [facility] [place] [address] PCP - GeneralFamily Wvuthavs88/6/23documented as of this encounter
--- OUTSIDE RECORDS SUMMARY | 2024-12-27 10:02 | XMS_ITS | Encounter Summary ---
Author Organization [facility] Address [address] [place] [address] Care Team Providers Care Cloth Finisher Name Role Phone Basil Rincon MD Primary Care Provider [phone] Encounter Details DateTypeDepartmentCare Team (Latest Contact Info)Hbaqdamuoer85/31/2025Travel Social History Tobacco UseTypesPacks/DayYears UsedDateSmoking Tobacco: UnknownAlcohol Use Standard Drinks/WeekCommentsNever0 (1 standard drink = 0.6 oz pure alcohol) Caffeine intake: noneCommentsUnknownSex and Gender InformationValueDate RecordedSex Assigned at MuwqhUvzzkp78/04/2023 10:02 AM ESTLegal SexFemale 05/04/2022 7:28 PM EDTGender YpftcazdJwdkyj04/04/2023 10:02 AM ESTSexual BcyrwqpvkpkZuwoxssj22/04/2023 10:02 AM ESTdocumented as of this encounter Plan of Treatment DateTypeDepartmentCare Team (Latest Contact Info)Bwfmswtmbgj06/04/2025 9:20 AM ESTRoutine [facility]OM[facility] Bruce BURGOS [address] [facility] [phone] Jung Crain DO [address] [facility] [address] [place], [place] [phone] 07/21/2025 9:00 AM EDTOffice Visit NOMToma BURGOS [address] [place] [phone] Dorothy De La Rosa PA [address] [facility] [place] [address] documented as of this encounter Visit Diagnoses Not on filedocumented in this encounter Care Teams Team MemberRelationshipSpecialtyStart DateEnd Date Basil Rincon MD [address] [facility] [place] [place] [address] PCP - GeneralFamily Zdmfytjd40/6/23documented as of this encounter
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
[2024-12-27 11:07] LABS: Hematocrit 34.5 % (36.0-48.0); Hemoglobin 12.3 g/dL (12.0-16.0); Immature Granulocytes Abs Auto 0.02 10^3/uL (0.00-0.03); Immature Granulocytes Pct Auto 0.3 % (0.0-0.5); Lymphocytes Absolute Auto 2.2 10^3/uL (1.2-3.8); Mean Corpuscular HGB Conc 35.7 g/dL (29.9-35.2); Mean Corpuscular Hemoglobin 31.3 pg (26.7-34.0); Mean Corpuscular Volume 87.8 fL (81.0-99.0); Platelet Count 279 10^3/uL (150-450); Red Blood Count 3.93 10^6/uL (4.20-5.40); White Blood Count 7.9 10^3/uL (4.0-11.0)
[2024-12-27 13:49] LABS: Cannabinoid Screen Urine NEGATIVE (NEGATIVE); Methamphetamines Screen Urine NEGATIVE (NEGATIVE); Tricyclic Antidepressant Urine NEGATIVE (NEGATIVE)
[2024-12-28 07:08] LABS: Rubella Antibodies, IgG <0.90 index (Immune >0.99)
[2024-12-28 12:08] LABS: Rapid Plasma Reagin, Quant Non Reactive titer (NonRea<1:1)
== END 2024-12-27 09:59 | disposition home or self-care (01) ==
LOC: LAB 09:59
PROVIDERS: PCP Family Medicine; Visit Provider Obstetrics & Gynecology
DX: Z34.01 Encounter for supervision of normal first pregnancy, first trimester (principal); N92.6 Irregular menstruation, unspecified
CPT/HCPCS: 36415; 80307; 83036; 85025; 86592; 86762; 86803; 86850; 86900; 86901; 87086; 87340; 87389